=== PATIENT | male | born 2000 | race Caucasian/White ===

== ENCOUNTER 2024-09-26 11:46 | Outpatient (REF) | payer OTHER, SELFPAY ==
[2024-09-26 16:50] LABS: Calculated LDL 145 mg/dL (<100); Cholesterol 231 mg/dL (<200); HDL Cholesterol 58 mg/dL (40-60); Triglyceride 143 mg/dL (<150)
== END 2024-09-26 11:47 | disposition home or self-care (01) ==
LOC: NCHCN 11:46
PROVIDERS: Visit Provider Nurse Practitioner Family
DX: Z00.00 Encounter for general adult medical examination without abnormal findings (principal)
CPT/HCPCS: 80061